=== PATIENT | male | born 1985 | race Caucasian/White ===

== ENCOUNTER 2024-09-10 11:55 | Outpatient (CLI) | payer MEDICAID, SELFPAY ==
[2024-09-10 12:09] VITALS: BP 106/75; PULSE 77; RESP 14; TEMP 36.5; O2SAT 95
--- NOTE | 2024-09-10 13:06 | PDOC.PAIN_ITS ---
Date of service: 09/10/24 Time of Service: 13:06 US Guided Nerve Blocks Procedure Performed Left Ilioinguinal Nerve Block and Left Iliohypogastric Nerve Block Pre-Procedural Evaluation Pain to the left ilioinguinal and iliohypogastric nerve distribution Referral Patient has been referred to the [facility] for Left Ilioinguinal Nerve Block and Left Iliohypogastric Nerve Block for a chief complaint of Left groin area pain Pre-Procedural Pain Score 3/10 Reason for Exam left groin pain Patient Interview Patient was interviewed and medical record reviewed: Yes There were no contraindications to performing an US guided procedure. Risks,expected side effects, potential benefits were reviewed. The patient consent form was signed and witnessed. Standard time out procedure was performed. Patient Safety No skin issues to the area of injection Procedure Description No sedation given for the procedure Patient was placed in the supine position and the following monitors: Pulse Ox applied. Pre-procedure ultrasound scanning perfomed using a Linear 9 MHz probe Site Preparation Chloroprep Local Anesthesia of Bupivacine 0.5% and Lidocaine 2% (5 cc). guidance using an in plane approach to the target area. After visualization of the needle tip at at the target area the following meds: Bupivacaine 0.5% (5 cc) and Dexamethasone 10mg (1 cc) were used. Total of injectate/medication mixture note: 11 cc Negative aspiration for blood. [place] were removed without difficulty. Ultrasound images captured and stored. Patient Mental Status Patient was alert and awake during procedure. Vital Signs Vital signs were stable throughout the procedure and recorded by nursing. Follow Up/Discharge Follow up plans and appointments were discussed with patient. Post procedure instruction was given as documented in nursing documentation. Discharge criteria met and discharged from the [facility]: Yes Post Procedure Post Procedure Pain: 0/10 Patient tolerated procedure well Procedure outcome: Successful Ilioinguinal Nerve Block Yes Iliohypogastric Nerve Block Yes
[2024-09-10 13:07] VITALS: PULSE 76; O2SAT 97
[2024-09-10] MEDS: Nerve Block Tray 1 EACH MC (13:09)
[2024-09-10] MEDS: Bupivacaine 0.5% Pres-Free 10 ML VIAL IJ (13:09)
[2024-09-10] MEDS: Dexamethasone Sod. Phos./Pres-Free 10 MG/ML VIAL IJ (13:10)
== END 2024-09-10 11:56 | disposition home or self-care (01) ==
LOC: PC 11:55
PROVIDERS: PCP Nurse Practitioner Family; Visit Provider Preventive Medicine Occupational Medicine
DX: G57.92 Unspecified mononeuropathy of left lower limb (principal)
CPT/HCPCS: 64425; J0665; J1100

== ENCOUNTER 2024-11-17 01:27 | Outpatient (CLI) | payer MEDICAID, SELFPAY ==
--- NOTE | 2024-11-17 07:30 | DI.RAD_ITS ---
Exam(s) XR FOOT LT COMPLETE XR FOOT RT COMPLETE EXAM: XR FOOT LT COMPLETE CLINICAL HISTORY: pain, PES CAVUS BOTH FEET, Q66.72. TECHNIQUE: 2D digital imaging was performed. Three views of both feet. COMPARISON: CR XR FOOT RT COMPLETE from 11/17/2024 FINDINGS: BONES: No acute fracture is present. No bony destructive lesion is seen. JOINTS: No dislocation present. Plantar arch is maintained. There are no significant degenerative changes. SOFT TISSUE: Normal. IMPRESSION: Unremarkable radiographs of the feet. DATA REPOSITORY: RADIATION DOSE DELIVERED:
== END 2024-11-17 01:47 ==
LOC: DI 01:27
PROVIDERS: PCP Nurse Practitioner Family; Visit Provider Podiatrist
DX: Q66.71 Congenital pes cavus, right foot (principal); Q66.72 Congenital pes cavus, left foot
CPT/HCPCS: 73630

== ENCOUNTER 2024-11-20 11:50 | Outpatient (CLI) | payer MEDICAID, SELFPAY ==
[2024-11-20 23:09] LABS: PSA, Screening 0.6 ng/mL (<=2.5)
== END 2024-11-20 11:51 | disposition home or self-care (01) ==
LOC: LBO 11:51
PROVIDERS: PCP Nurse Practitioner Family; Visit Provider Nurse Practitioner Family
DX: Z12.5 Encounter for screening for malignant neoplasm of prostate (principal)
CPT/HCPCS: 36415; 84153

== ENCOUNTER 2025-02-03 12:32 | Outpatient (CLI) | payer MEDICAID, SELFPAY ==
[2025-02-03 12:37] VITALS: BP 98/61; PULSE 68; RESP 18; TEMP 36.5; O2SAT 94
[2025-02-03 13:13] VITALS: PULSE 71; O2SAT 96
[2025-02-03 13:20] VITALS: PULSE 79; O2SAT 98
--- NOTE | 2025-02-03 13:29 | PDOC.PAIN_ITS ---
Date of service: 02/03/25 Time of Service: 13:29 US Guided Nerve Blocks Procedure Performed Left Ilioinguinal Nerve Block Pre-Procedural Evaluation Continued pain in the left ilioinguinal distribution Referral Patient has been referred to the [facility] for Left Ilioinguinal Nerve Block for a chief complaint of left anterior proximal thigh pain Pre-Procedural Pain Score 4/10 Reason for Exam Left ilioinguinal neuralgia Patient Interview Patient was interviewed and medical record reviewed: Yes There were no contraindications to performing an US guided procedure. Risks,expected side effects, potential benefits were reviewed. The patient consent form was signed and witnessed. Standard time out procedure was performed. Patient Safety No skin issues at the proposed injection site Procedure Description No sedation given for the procedure Patient was placed in the supine position and the following monitors: Pulse Ox applied. Pre-procedure ultrasound scanning perfomed using a Linear 9 MHz probe Site Preparation Chloroprep Local Anesthesia Skin and subcutaneous tissues were anesthetized with: 3 mL of Lidocaine 2%. A 21 G 3.5 [place] ultrasound needle was placed under live US guidance using an in plane approach to the target area. After visualization of the needle tip at at the target area the following meds: Bupivacaine 0.5% and Depo-Medrol 40mg per cc were used. Total of injectate/medication mixture note: 5 cc of 0.5% Bupivacaine and 1 cc of Depomedrol Negative aspiration for blood. [place] were removed without difficulty. Ultrasound images captured and stored. Patient Mental Status Patient was alert and awake during procedure. Vital Signs Vital signs were stable throughout the procedure and recorded by nursing. Follow Up/Discharge Follow up plans and appointments were discussed with patient. Post procedure instruction was given as documented in nursing documentation. Discharge criteria met and discharged from the [facility]: Yes Post Procedure Post Procedure Pain: 2/10 Patient tolerated procedure well Procedure outcome: Successful Coding Conscious Sedation used for procedure: No CPT Codes: Iliohypogastric Ilioinguinal - 77022 ([id number] ~G) Additional Codes: Visualization of the needle tip - Ultrasound images captured/stored: Yes ([id number]) Date of Service ([id number]) Date of service: 02/03/25 Diagnoses: Left ilioinguinal neuralgia
[2025-02-03] MEDS: Nerve Block Tray 1 EACH MC (13:30)
[2025-02-03] MEDS: Bupivacaine 0.25% Pres-Free 30 ML VIAL IJ (13:31)
[2025-02-03] MEDS: methylPREDNISolone ACETATE 40 MG/ML VIAL IJ (13:31)
[2025-02-03] MEDS: Lidocaine 2% Pres-Free 5 ML VIAL IJ (13:31)
== END 2025-02-03 12:33 | disposition home or self-care (01) ==
LOC: PC 12:33
PROVIDERS: PCP Nurse Practitioner Family; Visit Provider Preventive Medicine Occupational Medicine
DX: G57.82 Other specified mononeuropathies of left lower limb (principal); M79.652 Pain in left thigh
CPT/HCPCS: 64425; 76942; J0665; J1010

== ENCOUNTER 2025-05-21 14:40 | Outpatient (CLI) | payer MEDICAID, SELFPAY ==
[2025-05-21 14:52] VITALS: BP 125/79; PULSE 76; RESP 20; TEMP 36.9; O2SAT 100
[2025-05-21 15:22] VITALS: PULSE 75; O2SAT 96
[2025-05-21 15:30] VITALS: PULSE 75; O2SAT 97
[2025-05-21] MEDS: methylPREDNISolone ACETATE 40 MG/ML VIAL IJ (15:39)
[2025-05-21] MEDS: Bupivacaine 0.5% Pres-Free 10 ML VIAL IJ (15:39)
[2025-05-21] MEDS: Nerve Block Tray 1 EACH MC (15:40)
--- NOTE | 2025-05-26 13:19 | PDOC.PAIN ---
Date of service: 05/21/25 Time of Service: 15:30 US Guided Nerve Blocks Procedure Performed Left Ilioinguinal Nerve Block Pre-Procedural Evaluation Pain to the left groin. Last procedure gave him >>3 months of >50% pain relief. Has been more functional. No complications. Referral Patient has been referred to the [facility] for Left Ilioinguinal Nerve Block for a chief complaint of Left Groin pain Pre-Procedural Pain Score 4/10 Reason for Exam Left groin pain Patient Interview Patient was interviewed and medical record reviewed: Yes There were no contraindications to performing an US guided procedure. Risks,expected side effects, potential benefits were reviewed. The patient consent form was signed and witnessed. Standard time out procedure was performed. Patient Safety No noticeable major skin issues at the area of the proposed injection. Procedure Description No sedation given for the procedure Patient was placed in the supine position and the following monitors: Pulse Ox applied. Pre-procedure ultrasound scanning perfomed using a Linear 9 MHz probe Site Preparation Chloroprep Local Anesthesia Skin and subcutaneous tissues were anesthetized with: 3 mL of Lidocaine 2%. A 21 G 3.5 [place] ultrasound needle was placed under live US guidance using an in plane approach to the target area. After visualization of the needle tip at at the target area the following meds: Bupivacaine 0.5%, Dexamethasone 10mg and Lidocaine 2% were used. Total of injectate/medication mixture note: 1.5 cc of Dexamethasone, 3 cc of 2% Lidocaine, and 5 cc of 0.5% Bupivacaine. Negative aspiration for blood. [place] were removed without difficulty. Ultrasound images captured and stored. Patient Mental Status Patient was alert and awake during procedure. Vital Signs Vital signs were stable throughout the procedure and recorded by nursing. Follow Up/Discharge Follow up plans and appointments were discussed with patient. Post procedure instruction was given as documented in nursing documentation. Discharge criteria met and discharged from the [facility]: Yes Post Procedure Post Procedure Pain: 1/10 Patient tolerated procedure well Procedure outcome: Successful Comments: Was able to walk out without crutches. Coding Conscious Sedation used for procedure: No CPT Codes: Iliohypogastric Ilioinguinal - 66616 ([id number] ~G) Additional Codes: Visualization of the needle tip - Ultrasound images captured/stored: Yes ([id number]) Date of Service () Diagnoses: Ilioinguinal neuralgia
== END 2025-05-21 14:41 | disposition home or self-care (01) ==
LOC: PC 14:40
PROVIDERS: PCP Nurse Practitioner Family; Visit Provider Preventive Medicine Occupational Medicine
DX: R10.32 Left lower quadrant pain (principal); R53.81 Other malaise
CPT/HCPCS: 64425; 76942; J0665; J1010

== ENCOUNTER 2025-06-02 08:30 | Outpatient (CLI) | payer MEDICAID, SELFPAY ==
[2025-06-02 15:56] LABS: HCT 50.6 % (40.0-50.0); HGB 17.1 g/dL (13.5-17.5); MCH 31.1 pg (27.0-33.0); MCHC 33.8 % (32.0-36.0); MCV 92 fL (80-95); MPV 9.6 fL (8.0-11.0); Platelet Count 214 10^3/uL (130-400); RBC 5.49 10^6/uL (4.36-5.78); RDW 11.6 % (11.8-14.1); RDW-SD 39.1 fL; WBC 7.23 10^3/uL (4.4-10.8)
[2025-06-02 16:26] LABS: Anion Gap 8.7 mmol/L (3-11); BUN 22 mg/dL (9-23); CO2 27.3 mmol/L (20.0-31.0); Calcium 9.3 mg/dL (8.3-10.6); Chloride 104 mmol/L (98-107); Cholesterol 214 mg/dL (<200); Glucose 59 mg/dL (74-106); HDL Cholesterol 48 mg/dL (>40); Potassium 3.8 mmol/L (3.5-5.1); Sodium 140 mmol/L (136-145)
[2025-06-02 18:00] LABS: Hemoglobin A1C 5.1 % (<5.7)
[2025-06-03 09:37] LABS: Lab Add On Test DONE
[2025-06-03 10:02] LABS: TSH (W/Ref FT4) 0.64 uIU/mL (0.55-4.78)
== END 2025-06-02 08:31 | disposition home or self-care (01) ==
LOC: LOS 08:30
PROVIDERS: PCP Nurse Practitioner Family; Visit Provider Student in an Organized Health Care Education/Training Program
DX: Z00.00 Encounter for general adult medical examination without abnormal findings (principal); R79.89 Other specified abnormal findings of blood chemistry; G40.019 Localization-related (focal) (partial) idiopathic epilepsy and epileptic syndromes with seizures of localized onset, intractable, without status epilepticus
CPT/HCPCS: 36415; 80048; 80061; 80175; 85027; 83036; 84443

== ENCOUNTER 2025-07-13 11:48 | Emergency (ER) | payer MEDICAID, SELFPAY ==
--- NOTE | 2025-07-13 11:45 | RT.EKG_ITS ---
APPROVED REPORT Exam: Resting ECG Reason for Exam: sob Patient Location: E HR:89 bpm ECG Measurements Heart Rate 89 AXIS DE 146 P 61 QRSd 82 QRS 38 QT 335 T 36 QTc 407 Conclusion Sinus rhythm, rate 89 No interval abnormalities No STEMI Borderline ST elevation <1mm V1, V2, no reciprocal changes No priors available for comparison
[2025-07-13 11:49] VITALS: BP 118/86; PULSE 96; RESP 18; TEMP 37.5; O2SAT 96
[2025-07-13 11:52] VITALS: BP 118/86; PULSE 96; RESP 18; TEMP 37.5; O2SAT 96
--- NOTE | 2025-07-13 12:00 | DI.RAD_ITS ---
Exam(s) XR CHEST 2V PA LATERAL EXAM: XR CHEST 2V PA LATERAL CLINICAL HISTORY: eval PNA. TECHNIQUE: 2D digital imaging was performed. COMPARISON: No exams were available for comparison FINDINGS: 2 views: Heart size is normal. The mediastinum is not widened. Lungs are clear. No infiltrates nor pleural effusions. IMPRESSION: No acute pulmonary findings. DATA REPOSITORY: RADIATION DOSE DELIVERED:
--- NOTE | 2025-07-13 12:13 | ED.GENADUL_ITS ---
Discharge Plan Disposition Patient Disposition: Home Condition: Stable Discharge Details Clinical Impression: Influenza A, Asthma exacerbation Primary Care Provider: Vicky Miller ED Provider: Payal Garrett Home Meds and New Rx's Prescriptions: New prednisone 20 mg tablet 40 mg PO DAILY 4 Days Qty: 8 0RF oseltamivir [Tamiflu] 75 mg capsule 75 mg PO BID 5 Days Qty: 10 0RF No Action albuterol sulfate 90 mcg/actuation HFA aerosol inhaler 2 inh inhalation Q6H PRN (Reason: shortness of breath or wheezing) Qty: 18 4RF ibuprofen 200 mg tablet 200 mg PO Q6H PRN acetaminophen [Tylenol] 325 mg tablet 325 mg PO ONCE PRN multivitamin Tablet 1 tab PO DAILY ketoconazole 2 % cream 1 applic topical DAILY Qty: 120 6RF Rx Instructions: Apply to toenails once daily levetiracetam 750 mg tablet extended release 24 hr 3,000 mg PO DAILY Qty: 360 3RF lamotrigine 100 mg tablet 100 mg PO DAILY Discharge Instructions Instructions: Flu, Adult ED Additional Instructions: You were seen in the emergency department today for evaluation of bodyaches, chills, shortness of breath and cough, and were found to have influenza A. In our department you do full physical examination performed and received an nebulizer treatment as well as your first dose of steroids for your wheezing, likely caused by an asthma exacerbation. You had an x-ray that did not show any sign of pneumonia. I recommend that you continue to use your albuterol inhaler and I have provided you with a spacer. I have sent a prescription for the remainder of your course of prednisone, you will take your next dose tomorrow, as well as a prescription for Tamiflu, which you should start as soon as possible. Please use therapeutic dosing of Tylenol (acetaminophen) & Advil (ibuprofen) in an alternating fashion as follows: Take 1000mg of Tylenol every 6 hours without missing doses- that is 4 times per day. Intermediate in between the Tylenol doses, take 600mg of Advil also on a 6 hour schedule, that is also 4 times per day. With this strategy, you will be taking something for fever/pain as often as every 3 hours. The daily maximum dosing of Tylenol is 4000mg, and the daily maximum dosing of Advil is 2400mg. Please note that some common cold medications & prescription pain medications may contain acetaminophen and you need to read OTC drug labels and factor that in to maximum daily doses. Please follow-up with your primary care provider in the next few days to discuss this visit and any symptoms that change, worsen, or persist. Thank you for allowing us to be part of your care. Stand Alone Forms: Portal Information HPI General Mode of arrival: ambulatory . Date/Time Provider Initiated Documentation: 07/13/25 11:49 . Limitations to Documentation: no limitations . Information obtained by: patient and old records reviewed . HPI Narrative: This is a 39-year-old male patient with a past medical history significant for asthma, epilepsy, presenting for evaluation of 3 days of bodyaches, shortness of breath, subjective fever, and cough. The patient states for the first few days his illness felt just like irregular flu, he has had a cough productive of some mucus, feels like his symptoms worsen at night but have previously improved with his breathing exercises and albuterol. Last night his symptoms were much worse, and he presented this morning given concern over this symptom p rogression. The patient reports that he has been using [id number] medications including Tylenol and ibuprofen, took both of them already this morning. Related Data Home Medications ?Medication ?Instructions ?Recorded ?Confirmed acetaminophen 325 mg tablet 325 mg PO ONCE PRN 5 07/13/25 (Tylenol) multivitamin 1 tab PO DAILY 08/06/2406/16 levetiracetam 750 mg 3,000 mg (4 x 750 mg) PO BEENA LY 09/17/24 07/13/25 tablet,extended release 24 hr #360 tabs ketoconazole 2 % topical cream 1 applic topical DAILY #120 grams 10/21/24 07/13/25 ibuprofen 200 mg tablet 200 mg PO Q6H PRN 10/30/24 1 albuterol sulfate 90 mcg/actuation 2 inh inhalation Q6 H PRN shortness 02/20/25 07/13/25 aerosol inhaler of breath or wheezing #18 gr ams lamotrigine 100 mg tablet 100 mg PO DAILY 04/01/25 oseltamivir 75 mg capsule (Tamiflu) 75 mg PO BID 5 day s #10 caps 07/13/25 prednisone 20 mg tablet 40 mg (2 x 20 mg) PO DAILY 4 days 07/13/25 #8 tabs Previous Rx's ?Medication ?Instructions ?Recorded levetiracetam 750 mg 3,000 mg (4 x 750 mg) PO BEENA LY 09/17/24 tablet,extended release 24 hr #360 tabs ketoconazole 2 % topical cream 1 applic topical DAILY #120 grams 10/21/24 albuterol sulfate 90 mcg/actuation 2 inh inhalation Q6 H PRN shortness 02/20/25 aerosol inhaler of breath or wheezing #18 gr ams oseltamivir 75 mg capsule (Tamiflu) 75 mg PO BID 5 day s #10 caps 07/13/25 prednisone 20 mg tablet 40 mg (2 x 20 mg) PO DAILY 4 days 07/13/25 #8 tabs Allergies Allergy/AdvReac Type Severity Reaction Status Date / Time No Known Allergies Allergy Unverified 07/13/25 11:52 General Stated Complaint: GenMedical DAMION: 3 Exam Narrative Exam Narrative: Gen: Awake and alert, in no apparent distress HEENT: Non-icteric sclera Neck: Supple Lungs: No apparent respiratory distress, normal respiratory effort, occasional junky sounding cough appreciated during this provider's examination. Bilateral expiratory wheezing throughout all lung [place] CV: Appears well perfused, heart with regular rate and rhythm, strong distal pulses Abdomen: Non-distended, soft, nontender to palpation without rigidity, rebound, or guarding. MSK: Moves 4 extremities without apparent limitation in ROM. No peripheral ester ma Skin: Visualized skin without rashes, cyanosis. Neuro: Normal Gait, no obvious focal deficits or facial asymmetry. Speaks in full, clear sentences. Psych: Appropriate for situation. Course Vital Signs Vital signs: Vital Signs Temperature 37.5 C 07/13/25 11:49 Pulse 96 H 07/13/25 11:49 Respiratory Rate 18 07/13/25 11:49 Blood Pressure 118/86 07/13/25 11:49 Pulse Oximetry 96 07/13/25 11:49 Temperature 37.5 C 07/13/25 11:52 Temperature Source Oral 07/13/25 11:52 Pulse 96 H 07/13/25 11:52 Respiratory Rate 18 07/13/25 11:52 Blood Pressure 118/86 07/13/25 11:52 Pulse Oximetry 96 07/13/25 11:52 Medical Decision Making This is a 39-year-old male patient presenting for evaluation of 3 days of bodyaches, shortness of breath, cough. Differential includes but is not limited to viral URI, bronchitis, pneumonia, reactive airway disease exacerbation. The patient has no evidence of fluid overload on physical examination to significantly increase my concern for pulmonary edema or pleural effusion. The patient meets PERC criteria for PE rule out, and is without DVT symptoms, tachycardia, hypoxia, or pleuritic chest pain. The patient's body aches are bilateral and his young age and lack of risk factors is reassuring against ACS. EKG was obtained which shows a sinus rhythm without evidence of ischemia, interval abnormality, or ectopy. The patient has been tolerating oral intake and staying hydrated, I have a low concern for metabolic and electrolyte derangement, dehydration, kidney injury. We will obtain a viral swab, provide the patient with a duo nebulizer treatment for his wheezing, and obtain AN x-ray of the chest to evaluate for pneumonia. I had a shared decision-making conversation with this patient regarding the use of steroids, which he prefers to avoid, however, given the evidence of asthma exacerbation in the setting of an infectious illness, I do feel that steroids would be helpful in symptom improvement especially given the patient's concern that he will continue worsening at night. Prednisone will be provided p.o. At this time, I do not see an indication to proceed with laboratory studies given the patient's hemodynamic stability and preserved oral intake. - The patient's Fluvid is positive for influenza A, and the patient was made aware of this finding. His chest x-ray shows no focal consolidation concerning for pneumonia. He had improvement in his work of breathing after nebulizer, a prescription for prednisone and Tamiflu given his risk factors were sent to his preferred pharmacy. I also ensured that the patient had a spacer for use with his home albuterol inhaler. At this time, the patient has had a full medical evaluation and is safe for discharge to home. They are hemodynamically stable, ambulatory, and tolerating PO. They are understanding of the follow-up plan and return precautions. They left our facility without incident. 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) Epilepsy (Chronic) Spondylosis of lumbar region without myelopathy or radiculopathy (Chronic) Arthritis of right knee (Chronic) Durolane injection: 12/11/2024 Steroid injection: 10/30/2024 Previous viscosupplementation injections most recent series of 3 on 05/15/2024, 05/22/2024, 05/29/2024 Onychomycosis (Chronic) Dystrophia unguium (Acute) Pes cavus of both feet (Acute) Pain in both feet (Acute) Achilles tendon contracture, right (Acute) Metatarsalgia, right foot (Acute) Medical History Asthma Surgical History Status post hip surgery (~2020) left, torn labrum, hip impingement, [place], [place] 2020 left, scar tissue removal, [place], [place] 2022 Status post right knee surgery (~2007) Torn cartilage repair, [facility] 2007 Scar tissue removal, [facility] 2015 Family History Mother Asthma Hyperlipidemia Osteoporosis Father Hyperlipidemia Brother No problems noted. Brother No problems noted. Sister No problems noted. Maternal Grandfather Stroke Maternal Grandmother Stroke Paternal Grandfather No problems noted. Paternal Grandmother Stroke Social History Smoking/Tobacco Use Status: Never Smoking risk assessment performed?: Yes Alcohol Intake: current Alcohol Intake frequency: a few times a week Alcohol type: hard liquor Drug use: Daily Substance use type: marijuana Details: Last night was last edible. Adopted: No Caregiver/Support person: No Household members: none Housing: house Number of Children: 0 number of grandchildren: 0 Communication Needs: None Education Level: college Details: PhD Do you need help understanding health information?: Rarely current occupation: Research Sexually active: No Do you think of yourself as: straight/heterosexual Current gender identity: male What is your relationship status?: never How often do you talk on the phone with friends or family?: decline to answer How often do you get together with friends or relatives?: decline to answer How often do you attend pentecostalism or rastafari services?: decline to answer Do you belong to any clubs or organized social groups?: decline to answer Panel score (0-1 are the most socially isolated patients): 0 NHANES result reviewed/action taken: Yes What type of physical activity do you participate in: none Frequency: does not exercise Seatbelt use: always Helmet use: Yes Helmet use: always Drive intox or ride w/intox regional tanker truck driver: No Firearms in home: Yes Firearms unloaded and locked: Yes Do you feel safe at home: Yes Do you feel safe in your relationship?: Yes Victim of physical abuse: No Victim of emotional abuse: No Victim of sexual abuse: No Would you like helpful sources: No
[2025-07-13 12:36] VITALS: PULSE 90; RESP 22; O2SAT 94
[2025-07-13] MEDS: Albuterol/Ipratropium 3 ML UPD VIAL UPD (12:36)
[2025-07-13] MEDS: predniSONE 20 MG TAB 40 MG PO (12:36)
[2025-07-13 12:47] VITALS: RESP 18
[2025-07-13 13:02] LABS: COVID-19 PCR Negative (Negative); RSV PCR Negative (Negative)
[2025-07-13 13:49] VITALS: BP 127/70; PULSE 100; RESP 18; TEMP 36.6; O2SAT 97
== END 2025-07-13 14:11 | disposition home or self-care (01) ==
PROVIDERS: Emergency Provider Emergency Medicine; PCP Nurse Practitioner Family
DX: J45.901 Unspecified asthma with (acute) exacerbation (principal); J10.1 Influenza due to other identified influenza virus with other respiratory manifestations
CPT/HCPCS: 99284 ×2; 94640; 87637; 93005; 71046; 93010; J7512; J7620